=== PATIENT | female | born 1965 | race Caucasian/White ===

== ENCOUNTER 2023-10-27 12:14 | Emergency (ER) | payer OTHER, SELFPAY ==
[2023-10-27 12:25] VITALS: BP 127/66
[2023-10-27 12:38] VITALS: BP 126/71
[2023-10-27 12:43] VITALS: BMI 26.2
[2023-10-27 12:52] LABS: % Basophils 0.6 % (0-2); % Eosinophils 1.1 % (0-6); % Immature Granulocytes 0.4 % (0-0.5); % Lymphocytes 27.2 % (20.5-51.1); % Monocytes 8.8 % (1.7-9.3); % Neutrophils 61.9 % (42.2-75.2); Absolute Eosinophils 0.1 10^3/uL (0-0.7); Absolute Lymphocytes 1.3 10^3/uL (1.2-3.4); Absolute Monocytes 0.4 10^3/uL (0.1-0.6); Absolute Neutrophils 2.9 10^3/uL (1.4-6.5); Hematocrit 38.8 % (37.0-47.0); Hemoglobin 13.1 g/dL (12.0-16.0); Mean Corp Hgb Conc. 33.8 g/dL (33.0-37.0); Mean Corpuscular Hgb 31.4 pg (27.0-31.0); Mean Platelet Volume 10.3 fL (7.4-10.4); Nucleated Red Blood Cells % 0 %; Platelet Count 230 10^3/uL (130-400); Red Blood Cell Count 4.17 10^6/uL (4.20-5.40); Red Cell Dist. Width 12.3 % (11.5-14.5); White Blood Cell Count 4.6 10^3/uL (4.8-10.8)
[2023-10-27 13:00] VITALS: BP 100/64
[2023-10-27 13:05] LABS: INR 0.97; PT 12.6 Sec (11.4-14.6)
[2023-10-27 13:08] LABS: ALT (SGPT) 28 U/L (0-35); AST (SGOT) 34 U/L (14-36); Albumin 4.4 g/dl (3.5-5.0); Alkaline Phosphatase 93 U/L (38-126); Blood Urea Nitrogen 18 mg/dl (7-17); Calcium 9.2 mg/dl (8.4-10.2); Carbon Dioxide 30 mmol/L (22-30); Chloride 104 mmol/L (98-107); Estimated Creatinine Clearance 87 ml/min; Glucose 70 mg/dl (70-99); Potassium 3.6 mmol/L (3.5-5.1); Sodium 138 mmol/L (135-145); Total Bilirubin 0.5 mg/dl (0.2-1.3); Total Protein 7.3 g/dl (6.3-8.2); eGFR > 60.00
[2023-10-27 13:19] LABS: Troponin I < 0.012 ng/ml
--- NOTE | 2023-10-27 13:48 | ED.GENMED ---
History of Present Illness
General
Chief Complaint: Heart Rate Problem
Source: patient
Time Seen by Provider: 10/27/23 12:42
Travel History
Have you had any contact with someone who has COVID-19?: No
Do you have any symptoms of coronavirus? Fever > 100 degrees, chills, cough, shortness of breath, sore throat, loss of taste or smell, muscle aches, or headache?: No
History of Present Illness
History of Present Illness:
58-year-old female with no significant past medical history presenting the emergency department for evaluation after she started experiencing more frequent palpitations over the last 5 days, yesterday the symptoms were much more persistent prompting
her to come in today. She states that while the symptoms or not as persistent today as they were yesterday she still has had occasional episodes. She notes the episodes seem to be random and describes a sensation as if something is rushing over
the left side of her chest and up her heart. She states there are no other associated symptoms with this including pain, diaphoresis, shortness of breath, fevers or recent illnesses, abdominal pain or any other concerns. She does note that her son
had been sick earlier in the week with a stomach virus but states she has not have any symptoms herself.
Past History
Past History
ED Past Medical History: Asthma and Other (kidney stones)
ED Past Surgical History:
Social History
Tobacco: Non-smoker
Alcohol: Occasional
Drug: None
Personal:
Living: with family
Employment: Employed (starts tomorrow as automotive service assistant)
Review of Systems
Review of Systems
All Other Systems: ROS reviewed and negative except as documented in HPI and ROS
Phy Exam
Physical Exam
Physical Exam:
GENERAL: Alert , in no apparent distress
EYE: clear conjunctiva b/l
HEAD: NCAT
ENT: o/p clr, mmm.
CARDIAC: Regular rate and rhythm, no murmur.
LUNGS: Clear breath sounds bilaterally, no acute respiratory distress, no wheezes/rales/rhonchi
ABDOMEN: Soft, without focal tenderness, no r/g, no cvat
NEUROLOGICAL: Alert and oriented
SKIN: Warm and dry, skin intact.
MUSCULOSKELETAL: No edema, well perfused.
PSYCH: Normal and appropriate interaction.
Scores
Heart Failure Risk
Heart Failure Risk Score: Not Applicable
Heart Score for Chest Pain Patients
STEMI patient?: Not applicable
Withdrawal Assessment of Alcohol
Withdrawal Assessment Completed?: Not applicable
Course
Orders/Labs/Results
Orders:
Orders
10/27/23 12:28
Electrocardiogram (*1) Urgent
Reason for Study: Palpitations
10/27/23 12:29
EKG- Treatment ONCE
10/27/23 12:30
CR Chest - 2 Views Urgent
Comment:
Reason For Exam: chest pain
10/27/23 12:43
Complete Blood Count/With Diff Urgent
Comprehensive Metabolic Panel Urgent
Prothrombin Time Urgent
TSH Urgent
Comment: ADD
Troponin I Urgent
10/27/23 13:10
Add On- LAB Urgent
Tests Added?: tsh
Abnormal Lab Results
10/27/23
12:43
WBC 4.6 L 10^3/uL
(4.8-10.8)
RBC 4.17 L 10^6/uL
(4.20-5.40)
MCH 31.4 H pg
(27.0-31.0)
BUN 18 H mg/dl
(7-17)
Creatinine 0.5 L mg/dL
(0.6-1.0)
10/27/23 12:43
10/27/23 12:43
Vital Signs
Initial and Last Documented VS:
Initial Vital Signs
Temp Pulse Resp BP Pulse Ox
98.0 F 83 16 127/66 98
10/27/23 12:25 10/27/23 12:25 10/27/23 12:25 10/27/23 12:10/27/23 12:25
Last Documented Vital Signs
Temp Pulse Resp BP Pulse Ox
98.0 F 83 16 127/66 98
10/27/23 12:25 10/27/23 12:25 10/27/23 12:25 10/27/23 12:25 10/27/23 12:25
MDM/Problems Addressed
Differential Diagnosis Includes:
Cardiac dysrhythmia, electrolyte disturbance, valvular disorder, thyroid disorder
MDM/Problems Addressed:
58-year-old female present emergency department for evaluation of palpitations that been ongoing for 5 days, yesterday much more persistent. Arrives to the emergency department asymptomatic but does state that she had 1 episode prior to my arrival
into the room but there was no abnormal findings on her telemetry. Will continue to monitor as well as check labs including thyroid study. Reassessment following but I do anticipate need for outpatient follow-up with primary as well as cardiology.
*Pulse Oximetry
Patient hypoxic: no
*EKG
Interpreted by ED Provider?: Yes
Comparison EKG: no changes
Heart Rate: 74
Rate: normal
Rhythm: sinus
Ischemia: no ischemia
*Machinery Rigger Interpretation
Rate: normal
Rhythm: sinus
*Critical Care Note
Total Time (30-74mins, 75-104mins- exclusive of procedures): Not Applicable
Patient Management
Escalation/DeEscalation of care consider admission/obs:
10/27/2023 1508 PM: Patient is requesting to be discharged home. She does not inform the patient that if this is to come back severely abnormal I would contact her via telephone and she is agreeable with this plan. Stable for discharge and
outpatient management. Will notify the outpatient cardiology offices to try and help expedite follow-up visit. Patient is otherwise stable for discharge and aware of return precautions.
ED Attending Note
-
Portions of this chart may have been created with voice recognition software.� Occasional wrong word or��sound alike� substitutions may have occurred due to the inherent limitations of voice recognition software.
Discharge Plan
Departure
Patient Disposition: Home (Routine Discharge)
Date of Disposition: 10/27/23
Time of Disposition: 15:05
Patient with high blood pressure during this ER visit?: No
Discharge Problem:
Palpitations
Instructions: Palpitations (DC), Chest Pain DCA Follow Up
Prescriptions:
No Action
albuterol sulfate 90 MCG/PUFF HFA aerosol inhaler
1 puff inhalation R Q4HPRN PRN (Reason: breathing)
albuterol sulfate 2.5 MG/3 ML solution for nebulization
2.5 mg inhalation R Q4HPRN PRN (Reason: tightness, trouble breathing) Qty: 0 0RF
prednisone 50 MG tablet
50 mg PO DAILY Qty: 3 0RF
albuterol sulfate [Proventil HFA] 90 MCG/PUFF HFA aerosol inhaler
1 puff inhalation Q4HPRN PRN (Reason: trouble breathing) Qty: 0 0RF
Referrals:
Sandro Myers DO [Family Provider] -
Interventions
Interventions:
*Risk Screen - Suicide Last Done: 10/27/23 12:43
*General Assessment Last Done: 10/27/23 12:43
*Neglect/Abuse Screening Last Done: 10/27/23 12:43
*ED COVID-19 Vaccine History Last Done: 10/27/23 12:25
ED- Cardiac Assessment Last Done: 10/27/23 12:35
ED- Pulmonary Assessment Last Done: 10/27/23 12:35
[2023-10-27 14:37] VITALS: BP 95/83
[2023-10-27 15:01] VITALS: BP 107/51
[2023-10-27 15:11] LABS: TSH 1.18 uIU/ml (0.47-4.68)
== END 2023-10-27 15:17 | disposition home or self-care (01) ==
LOC: EMR 12:14
PROVIDERS: EMERGENCY PHYSICIAN Student in an Organized Health Care Education/Training Program; FAMILY PHYSICIAN Family Medicine
DX: R00.2 Palpitations (principal)
CPT/HCPCS: 99285; 71046; 80053; 84443; 84484; 85025; 85610; 93005

== ENCOUNTER → 2023-12-03 16:39 | Outpatient (REF) | payer OTHER, SELFPAY | LOC: RCS 16:39 | PROVIDERS: ATTENDING PHYSICIAN Internal Medicine Cardiovascular Disease; FAMILY PHYSICIAN Family Medicine | DX: R00.2 Palpitations (principal) | CPT/HCPCS: 93306 ==